=== PATIENT | female | born 1930 | race Caucasian/White ===

== ENCOUNTER 2017-03-31 14:55 | Emergency (ER) | payer MEDICARE ==
[2017-03-31] MEDS ORDERED: Bacitracin Zinc 1 Packet ONE (16:27)
== END 2017-03-31 16:47 | disposition home or self-care (01) ==
LOC: BURERS 14:55
DX: S81.811A Laceration without foreign body, right lower leg, initial encounter (principal); E03.9 Hypothyroidism, unspecified; E11.9 Type 2 diabetes mellitus without complications; I25.10 Atherosclerotic heart disease of native coronary artery without angina pectoris; I10 Essential (primary) hypertension; Z79.82 Long term (current) use of aspirin; Z79.899 Other long term (current) drug therapy; W22.8XXA Striking against or struck by other objects, initial encounter
CPT/HCPCS: 99283

== ENCOUNTER 2017-12-17 08:04 | Emergency (ER) | payer MEDICARE ==
[2017-12-17 08:46] LABS: #Basophils 0.1 thou/uL (0.0-0.2); #Eosinphils 0.1 thou/uL (0.0-0.7); #Lymphocytes 1.2 thou/uL (1.20-3.40); #Monocytes 0.9 thou/uL (0.11-0.59); %Eosinophils 1.6 % (0.0-10.0); %Lymphocytes 13.1 % (21.0-51.0); %Monocytes 9.9 % (0.0-10.0); %Neutrophils 74.4 % (42.0-75.0); Mean Corpuscular HGB CONC 34.9 g/dL (32.0-36.0); Mean Corpuscular Hemoglobin 30.4 pg (27.0-31.0); Mean Platelet Volume 8.4 fL (7.4-10.4); Platelet Count 182 thou/uL (130-400); RBC Distribution Width 13.3 % (11.5-14.5); White Blood Cell (WBC) Count 9.5 thou/uL (4.8-10.8)
[2017-12-17 08:55] LABS: Clarity Cloudy (Clear)
[2017-12-17 08:56] LABS: Bacteria/HPF 4+ HPF (None Seen); Bilirubin Negative (Negative); Blood, Urine Negative (Negative); Crystals/HPF None Seen HPF (Negative); Glucose, Urine (Dipstick) Negative (Negative); Hyaline Casts/LPF NONE SEEN LPF (0-3 Hyaline); Leukocyte Negative (Negative); Nitrite Positive (Negative); Other Casts/LPF None Seen LPF (0-3 Hyaline); Oval Fat Bodies/HPF None Seen HPF (None Seen); Protein, Urine (Dipstick) 30 mg/dL (Neg-Trace); RBC/HPF 0-3 HPF (0-3); Renal Epithelial None Seen HPF (0-3); Specific Gravity, Urine 1.015 (1.005-1.030); Sperm/HPF None Seen HPF (None Seen); Squamous Epithelial 0-3 HPF (0-3); Transitional Epithelial NONE SEEN HPF (0-3); Trichomonas/HPF None Seen HPF (None Seen); Urobilinogen 0.2 mg/dL (0.2-1.0); Yeast-All Forms None Seen HPF (None Seen); pH, Urine 5.5 (5.0-9.0)
[2017-12-17 09:02] LABS: ALT (SGPT) 24 U/L (8-55); AST (SGOT) 31 U/L (5-34); Albumin 3.8 g/dL (3.4-4.8); Alkaline Phosphatase 67 U/L (40-150); Anion Gap 14 mmol/L (10-20); BUN (Urea Nitrogen) 26 mg/dL (9.8-20.1); Bilirubin, Total 0.7 mg/dL (0.2-1.2); Calc. Creatinine Clearance 0 mL/min (70-130); Calcium 9.6 mg/dL (7.8-10.44); Carbon Dioxide 23 mmol/L (23-31); Chloride 108 mmol/L (98-107); Estimated GFR-MDRD 40; Globulin 2.8 g/dL (2.4-3.5); Glucose 99 mg/dL (83-110); Potassium 4.2 mmol/L (3.5-5.1); Protein, Total 6.6 g/dL (6.0-8.3); Sodium 141 mmol/L (136-145)
[2017-12-17] MEDS ORDERED: cefTRIAXone\\ROCEPHIN 1 GM VIAL ONE (09:21)
[2017-12-17] MEDS ORDERED: Acetaminophen 500 MG TAB ONE (09:21)
[2017-12-17] MEDS ORDERED: traMADol HCl 50 MG TAB ONE (10:08)
--- NOTE | 2017-12-17 10:50 | CT ---
CT OF THE CHEST AND ABDOMEN AND PELVIS WITH IV CONTRAST: Date: 12/17/17 PROVIDED CLINICAL HISTORY: Pain status post injury. FINDINGS: The heart is enlarged, with prominence of the right atrium in particular. Vascular calcification incl uding coronary calcium is seen. There are fractures of the left posterior 9th, 10th, and 11th ribs. T he 10th rib fracture is segmental and nondisplaced. The 9th rib fracture is moderately displaced. The re is a mild left pleural effusion. There is no evidence for pneumothorax. There is pleural fluid inv olving the cranial aspects of the major fissures bilaterally. The lungs are free of significant opaci ty. The airway appears patent and of normal caliber. The solid abdominal organs demonstrate no evidence for traumatic abnormality. There is no bowel dilat ation, inflammatory fat stranding, free fluid, or free air apparent. Vascular calcifications are seen . The osseous structures demonstrate no additional evidence for traumatic abnormality. Degenerative odalys nges are seen involving the lumbar spine. Thoracic and lumbar sagittal and coronal reconstructions de monstrate maintenance of vertebral body heights and no evidence for traumatic subluxation. Degenerati ve anterolisthesis of L4 on L5. Soft tissue hematoma involving the left flank region and subcutaneous adipose layer. IMPRESSION: 1. Left posterior 9th, 10th, and 11th rib fractures as described above. 2. Left pleural effusion. 3. Other chronic findings as described above. POS: [facility]
== END 2017-12-17 10:05 | disposition short-term general hospital (02) ==
LOC: BURERS 08:04
DX: S22.42XA Multiple fractures of ribs, left side, initial encounter for closed fracture (principal); R00.1 Bradycardia, unspecified; N39.0 Urinary tract infection, site not specified; E03.9 Hypothyroidism, unspecified; E11.9 Type 2 diabetes mellitus without complications; I10 Essential (primary) hypertension; I25.10 Atherosclerotic heart disease of native coronary artery without angina pectoris; Z79.82 Long term (current) use of aspirin; Z79.899 Other long term (current) drug therapy; W01.0XXA Fall on same level from slipping, tripping and stumbling without subsequent striking against object, initial encounter
CPT/HCPCS: 51701; 71260; 74177; 80053; 81003; 81015; 85025; 87040; 87077; 87086; 87186; 93005; 96374; 96375; A4353; J0696; J2270

== ENCOUNTER 2019-06-24 11:45 | Emergency (ER) | payer MEDICARE ==
[2019-06-24] MEDS ORDERED: HYDROcodone/Acetaminophen 5/325 mg Tablet ONE (12:50)
[2019-06-24] MEDS ORDERED: Ibuprofen 200 MG TAB ONE (12:51)
--- NOTE | 2019-06-24 13:57 | RAD ---
CHEST TWO VIEWS: 06/23/2019 COMPARISON: 05/01/2019 FINDINGS: Cardiomegaly is present but there is no congestive change. There are chronic changes in the lungs, pa rticularly the lower lungs, near the left costophrenic angle and right base. In addition, today one s ee s a fracture through the distal end of the left eighth rib. No pneumothorax is seen. If any pleura l fluid is present, it is minimal. There is always chronic blunting of her left costophrenic angle. T he mediastinum shows no widening or shift. IMPRESSION: 1. Acute fracture of the left eighth rib. 2. Cardiomegaly without congestive change. 3. 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 POS: HOME
== END 2019-06-24 13:00 | disposition home or self-care (01) ==
LOC: BURERS 11:45
DX: S22.32XA Fracture of one rib, left side, initial encounter for closed fracture (principal); J06.9 Acute upper respiratory infection, unspecified; I10 Essential (primary) hypertension; E11.9 Type 2 diabetes mellitus without complications; E03.9 Hypothyroidism, unspecified; I25.10 Atherosclerotic heart disease of native coronary artery without angina pectoris; Z79.899 Other long term (current) drug therapy; Z79.82 Long term (current) use of aspirin; W18.30XA Fall on same level, unspecified, initial encounter
CPT/HCPCS: 71046

== ENCOUNTER 2020-05-02 13:50 | Emergency (ER) | payer MEDICARE ==
[2020-05-02] MEDS ORDERED: Acetaminophen 500 MG TAB ONE (14:11)
[2020-05-02] MEDS ORDERED: traMADol HCl 50 MG TAB ONE (15:20)
--- NOTE | 2020-05-02 17:18 | RAD ---
RIGHT HAND THREE VIEWS: 05/02/20 There appears to be a fracture at the base of the second metacarpal, best seen on the PA view. I natalie ot tell if this is acute or old. The finding should be correlated with the physical exam and history. 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 The carpal bones appear intact as best as I can tell. IMPRESSION: Fracture at the base of the second metacarpal, age indeterminate. POS: HOME
== END 2020-05-02 15:30 | disposition home or self-care (01) ==
LOC: BURERS 13:50
DX: S62.310A Displaced fracture of base of second metacarpal bone, right hand, initial encounter for closed fracture (principal); S51.811A Laceration without foreign body of right forearm, initial encounter; E78.5 Hyperlipidemia, unspecified; I10 Essential (primary) hypertension; E03.9 Hypothyroidism, unspecified; E11.9 Type 2 diabetes mellitus without complications; I25.10 Atherosclerotic heart disease of native coronary artery without angina pectoris; V86.59XA Driver of other special all-terrain or other off-road motor vehicle injured in nontraffic accident, initial encounter; Z79.82 Long term (current) use of aspirin; Z79.899 Other long term (current) drug therapy
CPT/HCPCS: 29125